=== PATIENT | female | born 1955 | race Caucasian/White ===

== ENCOUNTER 2017-12-06 13:27 | Outpatient (CLI) | payer BC ==
[2017-12-06] MEDS ORDERED: ALBUTEROL NEB 2.5 MG/3 ML INH ONE (14:15)
--- NOTE | 2017-12-06 16:22 | XRAY Report ---
Reason: INCREASING DYSPNEA Procedure Date: 12/06/2017 Accession Number: [id number] / [id number] Procedure: XR - Chest 2 View X-Ray CPT Code: 90301 FULL RESULT: EXAM: CHEST RADIOGRAPHY EXAM DATE: 12/06/2017 03:23 PM. CLINICAL HISTORY: Increasing dyspnea. COMPARISON: XR CHEST PA AND LAT 08/10/2008 11:25 AM. TECHNIQUE: 2 views. FINDINGS: Lungs/Pleura: No focal opacities evident. No pleural effusion. No pneumothorax. Lung volumes are top normal. Diaphragms are somewhat flattened on the lateral view. Mediastinum: Heart and mediastinal contours are unremarkable. Other: None. IMPRESSION: High lung volumes with flattened diaphragms can be seen with obstructive lung disease. RADIA
== END 2017-12-06 13:28 | disposition home or self-care (01) ==
LOC: RT 13:27 → DI 13:28
PROVIDERS: ATTEND Registered Nurse
DX: R06.00 Dyspnea, unspecified (principal); Z87.891 Personal history of nicotine dependence
CPT/HCPCS: 71046; 94060; 94664

== ENCOUNTER 2018-12-11 12:51 | Outpatient (CLI) | payer BC ==
--- NOTE | 2018-12-11 14:07 | XRAY Report ---
Reason: CHRONIC OBSTRUCTIVE PULMONARY DISEASE W/EXACERBATI Procedure Date: 12/11/2018 Accession Number: [id number] / [id number] Procedure: XR - Chest 2 View X-Ray CPT Code: 89800 FULL RESULT: EXAM: CHEST RADIOGRAPHY EXAM DATE: 12/11/2018 01:26 PM. CLINICAL HISTORY: Chronic obstructive pulmonary disease with exacerbation. COMPARISON: CHEST 2 VIEW 12/06/2017 3:16 PM. TECHNIQUE: 2 views. FINDINGS: Lungs/Pleura: No focal opacities evident and no pulmonary edema. No pleural effusion. No pneumothorax. Increased AP diameter on lateral view and high lung volumes on frontal view, suggestive of obstructive lung disease, not new. Mediastinum: Heart and mediastinal contours are stable, not enlarged. Other: None. IMPRESSION: Suspect obstructive lung disease with no acute cardiopulmonary abnormality detected. RADIA
== END 2018-12-11 12:52 | disposition home or self-care (01) ==
LOC: DI 12:51
PROVIDERS: ATTEND Nurse Practitioner Family
DX: J44.1 Chronic obstructive pulmonary disease with (acute) exacerbation (principal)
CPT/HCPCS: 71046

== ENCOUNTER 2019-01-28 11:09 | Outpatient (CLI) | payer BC ==
--- NOTE | 2019-01-29 17:15 | CT Report ---
Reason: SCR FOR NEOPLASM OF RESPIRATORY TRACT Procedure Date: 01/28/2019 Accession Number: [id number] / [id number] Procedure: CT - Low Dose Lung Cancer Screen CPT Code: Final Report FULL RESULT: EXAM CT LUNG SCREEN EXAM DATE: 01/28/2019 11:46 AM. HISTORY: 63-year-old patient with [id number] smoking history. Currently smoking: No. Years since quittin. COMPARISON: None. TECHNIQUE: CT examination of the entire thorax without contrast was performed using low-dose technique. Thin section coronal, axial, sagittal and MIP axial images were obtained. In accordance with CT protocol optimization, one or more of the following dose reduction techniques were utilized for this exam: automated exposure control, adjustment of mA and/or KV based on patient size, or use of iterative reconstructive technique. FINDINGS: Nodules: Right upper lobe: Perivascular, 4.1 x 2.8 mm, average 3.5 mm (4/54) Right middle lobe: None. Right lower lobe: None. Left upper lobe: Lingula, 2.6 x 1.6 mm, average 2.1 mm (68). Left lower lobe: 1. Superior segment, 7.3 x 6.3 mm, average 6.8 mm (/52). 2. Perifissural along left fissure, 3.3 x 3.0 mm, average 3.2 mm (/62) Emphysema: Moderate. Pleura: Unremarkable. Aorta: Variant aortic arch anatomy, with common origin of the innominate and left common carotid arteries. Mild atherosclerotic within the aortic arch. No aneurysm. Mediastinum: Unremarkable. Coronary calcifications: Mitral valvular calcifications. Other pulmonary findings: Mild left basilar atelectasis. Linear atelectasis or scarring in the right lower lobe base. Other extrapulmonary findings: None. IMPRESSION: Lung-RADS ASSESSMENT CATEGORY: 3 - Probably benign Probability of malignancy: 1-2% RECOMMENDATION: Short-term follow-up with low-dose CT chest at 6 months. RADIA
== END 2019-01-28 11:10 | disposition home or self-care (01) ==
LOC: DI 11:09
PROVIDERS: ATTEND Registered Nurse
DX: Z12.2 Encounter for screening for malignant neoplasm of respiratory organs (principal); J43.9 Emphysema, unspecified; Z87.891 Personal history of nicotine dependence

== ENCOUNTER 2023-01-21 13:03 | Outpatient (CLI) | payer MEDICARE ==
[2023-01-21] MEDS ORDERED: ALBUTEROL 1 PUFF INH STA (18:22)
== END 2023-01-21 13:04 | disposition home or self-care (01) ==
LOC: RT 13:03
PROVIDERS: ATTEND Internal Medicine
DX: J44.89 Other specified chronic obstructive pulmonary disease (principal); J96.11 Chronic respiratory failure with hypoxia
CPT/HCPCS: 94060; 94375; 94729

== ENCOUNTER 2023-02-26 12:13 | Outpatient (CLI) | payer MEDICARE ==
--- NOTE | 2023-02-26 15:59 | DEXA Report ---
PROCEDURE: Dexa Spine and/or Hip INDICATIONS: POST MENOPAUSAL TECHNIQUE: Dual energy x-ray absorptiometry (DXA) was performed on a [employer] System. Regions measur ed are the AP Spine, femoral neck, and if needed forearm. COMPARISON: None FINDINGS: Lumbar Spine: Bone Mineral Density 0.82 g/cm/cm,T score -3. Left Femoral Neck: Bone Mineral Density 0.72 g/cm/cm, T score -2.3. Left Hip: Bone Mineral Density 0.81 g/cm/cm,T score -1.6. (T score greater or equal to -1.0: NORMAL) (T score from -1.1 to -2.4: OSTEOPENIA) (T score less than or equal to -2.5 to: OSTEOPOROSIS) Impression: By WHO criteria, this patient has osteoporosis. Patients with diagnosis of osteoporosis or osteopenia should have regular bone mineral density assess ment. For those eligible for Medicare, routine testing is allowed once every 2 years. Testing frequ ency can be increased for patients who have rapidly progressing disease or for those who are receivin g medical therapy to restore bone mass. Reviewed by: Maciej Giang MD on 02/26/2023 3:58 PM PST Approved by: Maciej Giang MD on 02/26/2023 3:58 PM PST Station ID: [id number]
== END 2023-02-26 12:14 | disposition home or self-care (01) ==
LOC: DI 12:13
PROVIDERS: ATTEND Registered Nurse
DX: Z78.0 Asymptomatic menopausal state (principal); M81.0 Age-related osteoporosis without current pathological fracture

== ENCOUNTER 2023-05-29 13:05 | Outpatient (CLI) | payer MEDICARE ==
--- NOTE | 2023-05-29 16:08 | XRAY Report ---
PROCEDURE: Knee 3V LT INDICATIONS: LEFT KNEE PAIN TECHNIQUE: 3 views of the knee were acquired. COMPARISON: None. FINDINGS: Bones: No acute fractures or dislocations. No suspicious bony lesions. Mild to moderate tricompar tmental joint space narrowing, slightly worse at the medial femorotibial compartment. Soft tissues: Trace knee joint effusion. No suspicious soft tissue calcifications or masses. 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 Reviewed by: Jairo Patino MD on 05/29/2023 4:07 PM PDT Approved by: Jairo Patino MD on 05/29/2023 4:07 PM PDT Station ID: [id number]
--- NOTE | 2023-05-29 21:02 | XRAY Report ---
PROCEDURE: Hand 3+V BL INDICATIONS: BILAT HAND PAIN TECHNIQUE: 3 views of the hand(s) acquired. COMPARISON: None. FINDINGS: Bones: No fractures or dislocations. No suspicious bony lesions. Moderate arthritic changes, most p ronounced at the first carpometacarpal joint bilaterally. There is bony erosion, most pronounced at t he right first metacarpal joint. . There is periarticular osteopenia. Soft tissues: No suspicious soft tissue calcifications or masses. IMPRESSION: 1. Moderate arthritic changes, most pronounced at the first carpal metacarpal joint. There is periart icular osteopenia and bony erosions suggesting inflammatory arthritis, superimposed on osteoarthritis . Reviewed by: Isidro Zendejas MD on 05/29/2023 9:00 PM PDT Approved by: Isidro Zendejas MD on 05/29/2023 9:00 PM PDT Station ID: [id number]
== END 2023-05-29 13:06 | disposition home or self-care (01) ==
LOC: DI 13:05
PROVIDERS: ATTEND Registered Nurse
DX: M17.12 Unilateral primary osteoarthritis, left knee (principal); M18.0 Bilateral primary osteoarthritis of first carpometacarpal joints; M19.041 Primary osteoarthritis, right hand; M19.042 Primary osteoarthritis, left hand; M85.842 Other specified disorders of bone density and structure, left hand; M85.841 Other specified disorders of bone density and structure, right hand